=== PATIENT | male | born 1970 | race Caucasian/White ===

== ENCOUNTER 2022-10-30 21:01 | Emergency (ER) | payer BC ==
[~2022-10-30] VITALS: Ht 185.4 cm; Wt 102.1 kg
[2022-10-30 22:33] VITALS: BP 154/70; TEMP 98.6; O2SAT 99
[2022-10-30] MEDS ORDERED: CEPH500T PO (22:49)
== END 2022-10-30 23:09 | disposition home or self-care (01) ==
LOC: ER 21:08
DX: L03.116 Cellulitis of left lower limb (principal); Z60.2 Problems related to living alone